=== PATIENT | female | born 1995 | race Caucasian/White ===

== ENCOUNTER 2017-05-25 06:09 | Emergency (ER) | payer OTHER ==
[~2017-05-25] VITALS: Ht 188 cm; Wt 74.3 kg
[2017-05-25] MEDS ORDERED: ONDANSETRON 2MG/ML, 2ML ONE (06:40)
[2017-05-25] MEDS ORDERED: KETOROLAC 30 MG/1 ML ONE (06:40)
[2017-05-25] MEDS ORDERED: ACETAMINOPHEN 500 MG TABLET ONE (06:40)
[2017-05-25 06:57] LABS: RAPID INFLUENZA A Negative (Negative); RAPID INFLUENZA B Negative (Negative)
[2017-05-25] MEDS ORDERED: ACETAMINOPHEN 500 MG TABLET PO ONE (07:00)
[2017-05-25] MEDS ORDERED: ONDANSETRON 2MG/ML, 2ML IVPush ONE (07:00)
[2017-05-25] MEDS ORDERED: SODIUM CHLORIDE 0.9% 1,000ML IVBOLUS ONE (07:00)
[2017-05-25] MEDS ORDERED: SODIUM CHLORIDE FLUSH 10ML SYR IVF ONE (07:00)
[2017-05-25] MEDS ORDERED: KETOROLAC 30 MG/1 ML IVPush ONE (07:00)
[2017-05-25 08:04] VITALS: BP 97/52
== END 2017-05-25 08:42 | disposition home or self-care (01) ==
LOC: ED 08:35
DX: J02.8 Acute pharyngitis due to other specified organisms (principal); E86.0 Dehydration; M79.1 Myalgia
CPT/HCPCS: 87400; 96361; 96374; 96375; 99284; J1885; J2405; J7030

== ENCOUNTER 2019-08-13 10:34 | Emergency (ER) | payer OTHER ==
[~2019-08-13] VITALS: Ht 185.4 cm; Wt 78.7 kg
[2019-08-13] MEDS ORDERED: LIDOCAINE 1%-EPI 1:100K, 20ML ONE (11:23)
[2019-08-13] MEDS ORDERED: HYDROcodone/APAP 5/325 TABLET ONE (11:24)
[2019-08-13] MEDS ORDERED: LIDOCAINE 1%-EPI 1:100K, 20ML SQ ONE (11:30)
[2019-08-13] MEDS ORDERED: HYDROcodone/APAP 5/325 TABLET PO ONE (11:30)
[2019-08-13 13:14] VITALS: BP 124/86
== END 2019-08-13 13:16 | disposition home or self-care (01) ==
LOC: ED 11:08
DX: N76.4 Abscess of vulva (principal)
CPT/HCPCS: 56405; 99284